=== PATIENT | male | born 1970 | race Caucasian/White ===

== ENCOUNTER 2018-10-31 08:46 | Outpatient (CLI) | payer OTHER, SELFPAY ==
[2018-10-31 12:16] LABS: Hemoglobin A1C 5.1 % (4.5-6.2)
[2018-10-31 12:29] LABS: Cholesterol 249 mg/dL (50-200); HDL Cholesterol 60 mg/dL (40-60); LDL CHOLESTEROL 144 mg/dL (<100); Triglyceride 343 mg/dL (30-150)
== END 2018-10-31 09:06 ==
PROVIDERS: PCP Family Medicine; Visit Provider Family Medicine
DX: Z00.00 Encounter for general adult medical examination without abnormal findings (principal); Z83.3 Family history of diabetes mellitus; Z13.220 Encounter for screening for lipoid disorders; Z13.1 Encounter for screening for diabetes mellitus
CPT/HCPCS: 36415; 80061; 83721; 83036

== ENCOUNTER → 2019-09-18 09:18 | Outpatient (BNVA) | payer OTHER, SELFPAY | PROVIDERS: PCP Family Medicine; Referring Provider Family Medicine; Visit Provider Physical Therapy Assistant | DX: Z12.11 Encounter for screening for malignant neoplasm of colon (principal) ==

== ENCOUNTER 2019-09-29 10:14 | Day surgery (SDC) | payer OTHER, SELFPAY ==
--- NOTE | 2019-09-29 07:06 | W.COLOREPORT ---
Date of service: 09/29/19 Time of Service: 11:42 Colonoscopy Report Date of procedure: 09/29/19 Pre-op diagnosis general: Colon Cancer Screening Post-op diagnosis procedure note: other (Mild diverticulosis) Procedure: Colonoscopy Surgeon: Farhana Edouard Anesthesia proc note operative: other (General/ ASA 2/Kim Hays CRNA) Estimated blood loss (mL): 0 Complications: None Disposition: same day Indications: 48 y/o male presents for his first colonoscopy screening pre-op. He denies a family history of colon cancer. He denies any changes in bowel habits including bloody or black tarry stools, abdominal pain, diarrhea or constipation. He denies constitutional symptoms. Denies use of marijuana or any other recreational or illegal drugs. Risks, benefits and complications have been reviewed. Complications include but are not limited to bleeding, pain, perforation, missed small lesion/polyp, sore throat, aspiration and adverse reaction to the medications. Questions were entertained and answered to their satisfaction and they wished to proceed. No guarantees were given or implied. Prep: Miralax/Dulcolax Procedure Start Time: :42 Procedure End Time: :02 Retraction Time: 12 minutes Findings: Mild diverticulosis Procedure Description: After informed consent was obtained the patient was taken to the procedure room and placed in a left decubitous position. Monitors were applied and a time out was done. The patients name, date of , procedure, allergies to medications and metal in their body was reviewed. The patient was then sedated. Once sedated and comfortable a rectal exam was done. External exam was normal. Internal exam revealed a normal sphincter tone and no palpable masses. I was unable to feel the prostate. The scope was then introduced and retro-flexed. No internal hemorrhoids, masses or polyps were identified on retro-flexion. The scope was then advanced to the cecum without difficulty. The TI and appendiceal orifice were identified. The prep was adequate. The scope was then slowly retracted over 12 minutes back into the rectum. There were no polyps. Mild diverticulosis was noted in the sigmoid colon. The scope was removed and the patient was woken up and taken back to Same day surgery in stable condition. The patient tolerated the procedure well and there were no immediate complications. Follow up: The patient should follow up in 10 years unless they develop changes in bowel habits or other new gastrointestinal complaints.
--- NOTE | 2019-09-29 07:08 | W.PM.DSUDISC ---
Discharge Plan Disposition Patient Disposition: HOME Condition: Good Discharge Details Reason For Visit: SCREENING Attending Provider: Farhana Edouard Primary Care Provider: Mari Betancur Home Meds and New Rx's Prescriptions: Discontinued polyethylene glycol 3350 17 gram/dose powder 238 g PO ONCE Qty: 238 RF: 0 bisacodyl [Dulcolax (bisacodyl)] 5 mg tablet,delayed release (DR/EC) 5 mg PO ONCE Qty: 4 RF: 0 Discharge Instructions Instructions: Colonoscopy (DC), Diverticulosis (DC) Additional Instructions: Findings: Mild diverticulosis Follow up: 10 years Please call if you develop: fevers >101.5 Nausea or Vomiting Abdominal pain that is not transient DAY SURGERY UNIT POST ENDOSCOPY INSTRUCTIONS 1. Because there will be medication in your system for the next 24 hours, you may feel a little sleepy. Your coordination will be affected. Therefore: a. Do not drive or operate dangerous equipment for 24 hours. b. Do not drink alcohol beverages for 24 hours (not even beer). c. Plan to go home and rest for the day. 2. Generally there are no restrictions on your activity after a day or so has gone by, but you may feel a bit fatigued for a few days. 3 After you arrive home you may have a light meal and return to a normal diet as you can tolerate it without feeling sick to your stomach. 4. After surgery, you may feel pain or discomfort. This should be only transient, but if it persists please contact your doctor. 5. If there are any questions regarding the findings of your procedure, please feel free to contact your doctor. 6. If you are unable to contact your doctor with a problem, contact the hospital at [phone]. 7. Continue all your regular medications unless directed otherwise. I understand the above instructions and have no questions. Signature of Patient or Responsible Adult Escort Date/Time Name of Responsible Adult Escort Signature of Nurse Date/Time Activity:: Activity as Tolerated Diet:: High Fiber diet Discharge Orders Discharge Orders: Discharge Order (Routine); Ordered 09/29/19 Ordered By: Farhana Edouard DS: Diagnosis Discharge Diagnosis (1) Encounter for screening colonoscopy for [id number] patient: Status: Acute (2) Diverticulosis: Status: Acute
[2019-09-29 10:45] VITALS: BP 137/94; PULSE 59; RESP 16; TEMP 36.7; O2SAT 97
[2019-09-29] MEDS: Lactated Ringers 1,000 ML 80 ML IV (11:09)
[2019-09-29 12:31] VITALS: BP 148/98; PULSE 61; RESP 16; TEMP 36.4; O2SAT 100
== END 2019-09-29 12:40 | disposition home or self-care (01) ==
LOC: SUR 10:14
PROVIDERS: PCP Family Medicine; Visit Provider Surgery
PROC: 0DJD8ZZ Inspection of Lower Intestinal Tract, Via Natural or Artificial Opening Endoscopic (ICD-10-PCS; CPT 45378; principal; 2019-09-29 11:30)
DX: Z12.11 Encounter for screening for malignant neoplasm of colon (principal); K57.30 Diverticulosis of large intestine without perforation or abscess without bleeding
CPT/HCPCS: G0121

== ENCOUNTER 2019-11-03 09:38 | Outpatient (CLI) | payer OTHER, SELFPAY ==
[2019-11-03 13:16] LABS: ALT 35 U/L (16-63); AST 20 U/L (15-37); Albumin 3.8 g/dL (3.4-5.0); Alkaline Phosphatase 37 U/L (46-116); Anion Gap 7.7 mmol/L (3-11); BUN 10 mg/dL (7-18); Bilirubin, Total 0.4 mg/dL (0.2-1.0); CO2 30.3 mmol/L (21.0-32.0); CREATININE 1.18 mg/dL (0.70-1.30); Calcium 8.7 mg/dL (8.5-10.1); Calculated LDL 97 mg/dL; Chloride 104 mmol/L (98-107); Cholesterol 197 mg/dL (<200); Glucose 88 mg/dL (74-106); HDL Cholesterol 41 mg/dL (40-60); Potassium 4.2 mmol/L (3.5-5.1); Sodium 142 mmol/L (136-145); Total Protein 6.9 g/dL (6.4-8.2); Triglyceride 298 mg/dL (<150)
[2019-11-04 12:14] LABS: PSA, Screening 0.5 ng/mL (0.0-3.5)
== END 2019-11-03 09:58 ==
PROVIDERS: PCP Family Medicine; Visit Provider Family Medicine
DX: Z00.00 Encounter for general adult medical examination without abnormal findings (principal); E78.00 Pure hypercholesterolemia, unspecified; Z12.5 Encounter for screening for malignant neoplasm of prostate
CPT/HCPCS: 36415; 80053; 80061; 84153

== ENCOUNTER 2020-04-13 12:55 | Outpatient (CLI) | payer OTHER, SELFPAY ==
[2020-04-15 07:25] LABS: COVID-19 RT-PCR Result NEGATIVE (Negative)
== END 2020-04-13 13:15 ==
PROVIDERS: PCP Family Medicine; Visit Provider Family Medicine
DX: R05 Cough (principal); Z11.59 Encounter for screening for other viral diseases
CPT/HCPCS: U0003

== ENCOUNTER 2020-08-16 10:46 | Outpatient (CLI) | payer OTHER, SELFPAY ==
[2020-08-18 13:17] LABS: Patient Race White; SARS-CoV-2 RNA Undetected (Undetected); SARS-CoV-2 Specimen Source Nasopharynx
== END 2020-08-16 11:06 ==
PROVIDERS: PCP Family Medicine; Visit Provider Family Medicine
DX: Z20.828 Contact with and (suspected) exposure to other viral communicable diseases (principal)
CPT/HCPCS: U0003

== ENCOUNTER 2020-11-08 02:22 | Outpatient (CLI) | payer OTHER, SELFPAY ==
[2020-11-09 13:22] LABS: COVID-19 RT-PCR UVMMC Result Negative (Negative)
== END 2020-11-08 02:42 ==
PROVIDERS: PCP Family Medicine; Visit Provider Family Medicine
DX: Z11.52 Encounter for screening for COVID-19 (principal); Z01.818 Encounter for other preprocedural examination
CPT/HCPCS: U0003

== ENCOUNTER 2020-11-11 00:51 | Outpatient (CLI) | payer OTHER, SELFPAY ==
--- NOTE | 2020-11-11 09:00 | ETT_ITS ---
APPROVED REPORT Exam: Exercise Treadmill Patient Location: Out-Patient Room/Bed: Stress Nurse: Khushi Salinas RN, Gaby Jackson RN Ordering Provider:NORA FIELD, Contact Number: [phone] BMI: 32.86 Baseline Rhythm: Sinus Bradycardia Indications: Requirement for [employer] deployment. Medical History Medical History: Hypertension, diverticulitis, anxiety, hyperlipidemia, depression Cardiac Medications: losartan, Losartan Allergies: NKA Cardiac Risk Factors: HTN, HLD, former smoker Previous Cardiac Procedures: None. Pretest Chest Pain Characteristics: None. Exercise History: Physically active Physical Disabilities: None. Lung Sounds: Clear to auscultation Heart Sounds: Regular Stress Test Details Test: Exercise stress testing was performed using a Keyur protocol. Rest Stress HR Resting HR Supine: 56 bpm Max Heart Rate (APMHR): 169 bpm Resting HR Standin bpm Target HR (85% APMHR): 143 bpm Max HR Achieved: 162 bpm % of APMHR: 95 Recovery HR: 86 bpm HR response to stress: Normal HR response to stress BP Resting BP Supine: 130/94 mmHg Resting BP Standin/90 mmHg Max BP: 166/84 mmHg Recovery BP: 138/90 mmHg BP response to stress: Normal blood pressure response to stress. ECG Resting ECG: Sinus Bradycardia Comment: diffuse slight ST elevation Stress ECG: Sinus Tachycardia ST Change: No significant ST segment changes noted Arrhythmia: PVC Recovery ECG: Sinus Rhythm Recovery ST Change: No significant ST segment changes noted Recovery Arrhythmia: None. Comment: U waves present Clinical Reason for Termination: Lightheadedness Stress Symptoms: Lightheadedness Exercise duration: 11 min13 sec Highest Stage Reached: Stage 4: 4.2 mph at 16% grade. Exercise capacity: 13.48 METs Rate Pressure Product: 08742 Stress ECG Conclusion 1. The resting electrocardiogram was normal 2. The patient exercised on the Keyur protocol and completed a workload of 13.48 METS, exercising for 11 minutes and 13 seconds. Patient had no chest discomfort. he described lightheadedness at end ex ercise 3. Normal heart rate and blood pressure response to exercise. The patient achieved 95% of predicted heart rate for age 4. Electrocardiographically there was no evidence of myocardial ischemia 5. Sporadic PVCs were seen 6. Frank treadmill score is 11, low risk Stress Test Summary STAGE Time (mins) Speed (mph) Grade (%) HR BP SYMPTOMS METS Supine 56 130/94 Standing 78 128/90 1 3 1.7 10 103 130/88 4.6 2 6 2.5 12 126 138/90 7 3 9 3.4 14 146 150/92 Lightheaded at 10 minutes 10.2 1 min recovery 133 166/84 Symptoms resolved 3 min recovery 92 152/88 6 min recovery 86 138/90 Pt became lightheaded during excercise. Synmptoms resolved immediately upon cessation of exercise.
== END 2020-11-11 01:11 ==
PROVIDERS: PCP Family Medicine; Visit Provider Family Medicine
DX: I10 Essential (primary) hypertension (principal); E78.5 Hyperlipidemia, unspecified; Z87.891 Personal history of nicotine dependence; R94.31 Abnormal electrocardiogram [ECG] [EKG]
CPT/HCPCS: 93016; 93018; 93017

== ENCOUNTER 2021-01-28 07:40 | Outpatient (CLI) | payer OTHER, SELFPAY ==
[2021-01-29 14:36] LABS: COVID-19 RT-PCR UVMMC Result Negative (Negative)
== END 2021-01-28 07:41 | disposition home or self-care (01) ==
LOC: LBO 07:41
PROVIDERS: PCP Family Medicine; Visit Provider Family Medicine
DX: Z20.822 Contact with and (suspected) exposure to COVID-19 (principal); R50.9 Fever, unspecified
CPT/HCPCS: U0003

== ENCOUNTER 2021-03-22 15:42 | Outpatient (REF) | payer OTHER, SELFPAY ==
[2021-03-22 14:06] LABS: TSH (W/Ref FT4) 2.09 uIU/mL (0.36-3.74)
[2021-03-24 02:56] LABS: Vitamin D 25 Total 35.1 ng/mL (30-100)
== END 2021-03-22 15:43 | disposition home or self-care (01) ==
LOC: LBN 15:42
PROVIDERS: PCP Family Medicine; Visit Provider Family Medicine
DX: F41.1 Generalized anxiety disorder (principal); F32.9 Major depressive disorder, single episode, unspecified; Z13.21 Encounter for screening for nutritional disorder
CPT/HCPCS: 82306; 84443

== ENCOUNTER 2022-06-26 09:14 | Outpatient (CLI) | payer OTHER, SELFPAY ==
[2022-06-26 12:40] LABS: ALT 65 U/L (16-63); AST 67 U/L (15-37); Alkaline Phosphatase 31 U/L (46-116); Anion Gap 11.5 mmol/L (3-11); BUN 9 mg/dL (7-18); Bilirubin, Total 0.4 mg/dL (0.2-1.0); CO2 29.5 mmol/L (21.0-32.0); Calcium 9.1 mg/dL (8.5-10.1); Calculated LDL 131 mg/dL (<100); Chloride 101 mmol/L (98-107); Cholesterol 203 mg/dL (<200); Estimated GFR 90.56 (mL/min/1.73m2); Glucose 96 mg/dL (74-106); HDL Cholesterol 51 mg/dL (40-60); Potassium 3.8 mmol/L (3.5-5.1); Sodium 142 mmol/L (136-145); Total Protein 7.3 g/dL (6.4-8.2); Triglyceride 106 mg/dL (<150)
[2022-06-26 19:02] LABS: PSA, Screening 0.5 ng/mL (<=3.5)
== END 2022-06-26 09:15 | disposition home or self-care (01) ==
LOC: LOS 09:14
PROVIDERS: PCP Family Medicine; Referring Provider Family Medicine; Visit Provider Family Medicine
DX: Z00.00 Encounter for general adult medical examination without abnormal findings (principal); E78.00 Pure hypercholesterolemia, unspecified; R03.0 Elevated blood-pressure reading, without diagnosis of hypertension; Z12.5 Encounter for screening for malignant neoplasm of prostate
CPT/HCPCS: 36415; 80053; 80061; 84153

== ENCOUNTER 2022-09-12 03:42 | Outpatient (CLI) | payer OTHER, SELFPAY ==
[2022-09-12 08:00] LABS: ALT 21 U/L (16-63); AST 19 U/L (15-37); Albumin 3.9 g/dL (3.4-5.0); Alkaline Phosphatase 34 U/L (46-116); Anion Gap 3.7 mmol/L (3-11); BUN 9 mg/dL (7-18); Bilirubin, Total 0.7 mg/dL (0.2-1.0); CO2 32.3 mmol/L (21.0-32.0); CREATININE 1.1 mg/dL (0.70-1.30); Calcium 9.2 mg/dL (8.5-10.1); Chloride 103 mmol/L (98-107); Estimated GFR 80.77 (mL/min/1.73m2); Glucose 128 mg/dL (74-106); Potassium 3.6 mmol/L (3.5-5.1); Sodium 139 mmol/L (136-145); Total Protein 6.9 g/dL (6.4-8.2)
== END 2022-09-12 03:43 | disposition home or self-care (01) ==
PROVIDERS: PCP Family Medicine; Visit Provider Family Medicine
DX: R74.8 Abnormal levels of other serum enzymes (principal)
CPT/HCPCS: 36415; 80053

== ENCOUNTER 2023-05-11 11:01 | Outpatient (REF) | payer OTHER, SELFPAY ==
[2023-05-11 11:24] LABS: Sperm(Post-Vasectomy) Absent
[2023-05-11 11:34] LABS: Second Tech Reviewed ABSENT
== END 2023-05-11 11:02 | disposition home or self-care (01) ==
LOC: LBN 11:01
PROVIDERS: PCP Family Medicine; Visit Provider Family Medicine
DX: Z98.52 Vasectomy status (principal); Z30.8 Encounter for other contraceptive management
CPT/HCPCS: 89321